=== PATIENT | female | born 1990 | race Caucasian/White ===

== ENCOUNTER 2016-09-01 15:54 | Emergency (ER) | payer SELFPAY ==
[~2016-09-01] VITALS: Ht 160 cm; Wt 60.0 kg
[2016-09-01 16:48] LABS: ADD MIUA? NO; BILIRUBIN NEGATIVE; BLOOD NEGATIVE; COLOR YELLOW ((YELLOW)); GLUCOSE (STRIP) NEGATIVE; KETONES NEGATIVE; LEUKOCYTES NEGATIVE; NITRITE NEGATIVE; PH, URINE 7.5 (5-8); PROTEIN (STRIP) NEGATIVE; SPECIFIC GRAVITY 1.014 (1.000-1.030); UCUL ADDED? NO; UROBILINOGEN 0.2 MG/DL (0.2-1.0)
[2016-09-01] MEDS ORDERED: FLAGYL500 MG PO (23:38)
[2016-09-01 23:55] VITALS: BP 104/69
[2016-09-03 13:24] LABS: CHLAMYDIA TRACHOMATIS NEGATIVE; NEISSERIA GONORRHOEAE NEGATIVE
== END 2016-09-01 23:56 | disposition home or self-care (01) ==
LOC: EME 15:54
PROVIDERS: Physician Assistant
DX: O26.892 Other specified pregnancy related conditions, second trimester (principal); N89.8 Other specified noninflammatory disorders of vagina; R30.0 Dysuria; O99.332 Smoking (tobacco) complicating pregnancy, second trimester; Z3A.14 14 weeks gestation of pregnancy; F17.200 Nicotine dependence, unspecified, uncomplicated
CPT/HCPCS: 81003; 87210; 87480; 87491; 87510; 87591; 87660; 99281; 99284

== ENCOUNTER 2017-03-04 03:37 | Inpatient (IN) | payer OTHER ==
[~2017-03-04] VITALS: Ht 160 cm; Wt 76.8 kg
[2017-03-04] VITALS (37 sets, daily range): BP systolic 100–133; BP diastolic 58–85
[~2017-03-04 03:37] MED LIST: FLAGYL500 MG PO
[2017-03-04] MEDS ORDERED: PRENATAL TABLE1 EAC3 PO (04:39)
[2017-03-04 06:54] LABS: EOSINOPHIL (%) 0.2 % (0-5); HEMATOCRIT 34.8 % (36.0-46.0); IMMATURE GRANULOCYTE (%) 0.4 % (0.0-0.7); IMMATURE GRANULOCYTE COUNT 0.1 K/uL; INSTRUMENT ABS NEUTROPHIL CT 11.2 K/uL; LYMPHOCYTE COUNT 1.3 K/uL (1.0-2.8); MCH 30.8 PG (29.0-34.0); MCHC 34.5 G/DL (30.0-36.0); MCV 89.5 FL (83-99); MONOCYTE COUNT 1.1 K/uL (0-0.8); NEUTROPHIL (%) 82.1 % (45-76); NEUTROPHIL COUNT 11.2 K/uL (1.8-6.4); PLATELET COUNT 240 K/uL (156-360); RBC DIS.WIDTH-CV 12.8 % (11.8-14.6); RBC DIS.WIDTH-SD 41.4 % (39-53); RED BLOOD COUNT 3.89 M/uL (3.80-5.20); WHITE BLOOD COUNT 13.7 K/uL (4.1-10.2)
[2017-03-05] VITALS (8 sets, daily range): BP systolic 102–157; BP diastolic 63–76
[2017-03-06 07:22] LABS: EOSINOPHIL (%) 1.8 % (0-5); EOSINOPHIL COUNT 0.2 K/uL (0-0.3); HEMATOCRIT 27.8 % (36.0-46.0); IMMATURE GRANULOCYTE (%) 0.6 % (0.0-0.7); IMMATURE GRANULOCYTE COUNT 0.1 K/uL; INSTRUMENT ABS NEUTROPHIL CT 9.2 K/uL; MCHC 33.8 G/DL (30.0-36.0); MCV 91.7 FL (83-99); MEAN PLAT.VOLUME 9.9 uM^3 (9.5-12.4); MONOCYTE (%) 8.9 % (3-12); MONOCYTE COUNT 1.1 K/uL (0-0.8); NEUTROPHIL (%) 72.9 % (45-76); NEUTROPHIL COUNT 9.2 K/uL (1.8-6.4); PLATELET COUNT 191 K/uL (156-360); RBC DIS.WIDTH-CV 13.2 % (11.8-14.6); WHITE BLOOD COUNT 12.6 K/uL (4.1-10.2)
[2017-03-06 07:23] LABS: RED BLOOD COUNT 3.03 M/uL (3.80-5.20)
[2017-03-06 23:00] VITALS: BP 118/74
[2017-03-07 07:07] VITALS: BP 121/82
[2017-03-07] MEDS ORDERED: IBUPROFEN800 MG PO (08:46)
[2017-03-07] MEDS ORDERED: BREAST PUMP MC (09:22)
[2017-03-07 16:08] VITALS: BP 122/83
== END 2017-03-07 18:19 | disposition home or self-care (01) | DRG 775 ==
LOC: LDRP-OP 03:37 → 2WEST 03:38 → LDRP-OP 03-31 14:38
PROVIDERS: Advanced Practice Midwife
DX: O26.03 Excessive weight gain in pregnancy, third trimester (principal); Z37.0 Single live birth; Z82.49 Family history of ischemic heart disease and other diseases of the circulatory system; Z3A.39 39 weeks gestation of pregnancy
CPT/HCPCS: 85025; C1755; G0378; J0595; J3010; J7120